=== PATIENT | female | born 1985 | race Caucasian/White ===

== ENCOUNTER → 2017-07-08 | Outpatient (CLI) | payer OTHER | END | disposition home or self-care (01) | LOC: CFH 13:54 | PROVIDERS: ATTEND Nurse Practitioner | DX: O46.8X1 Other antepartum hemorrhage, first trimester (principal); Z3A.00 Weeks of gestation of pregnancy not specified | CPT/HCPCS: 76801 ==

== ENCOUNTER 2018-05-10 11:06 | Outpatient (CLI) | payer MEDICAID ==
[~2018-05-10] VITALS: Ht 157.5 cm; Wt 80.9 kg
[2018-05-10 11:12] VITALS: BP 130/62
== END 2018-05-10 11:40 | disposition home or self-care (01) ==
LOC: LDOP 11:06
PROVIDERS: ATTEND Obstetrics & Gynecology
DX: O13.3 Gestational [pregnancy-induced] hypertension without significant proteinuria, third trimester (principal); O26.893 Other specified pregnancy related conditions, third trimester; R51 Headache; Z3A.35 35 weeks gestation of pregnancy
CPT/HCPCS: 59025; 99211; G0463

== ENCOUNTER 2018-06-17 14:02 | Inpatient (IN) | payer MEDICAID ==
[~2018-06-17] VITALS: Ht 157.5 cm; Wt 75.9 kg
[2018-06-17] MEDS ORDERED: METOCLOPRAMIDE 5 MG/ML, 2ML IVPush PRN (14:30)
[2018-06-17] MEDS ORDERED: OXYTOCIN 30U/ 0.9% NaCL 500ML 500 ML IV ONE (14:30)
[2018-06-17] MEDS ORDERED: FENTANYL PF 100 MCG/2ML IVPush PRN (14:30)
[2018-06-17] MEDS ORDERED: D5%-LACTATED RINGERS 1,000 ML IV SCH (14:30)
[2018-06-17] MEDS: LACTATED RINGERS 1,000 ML IV SCH ×4 (14:30→20:31)
[2018-06-17] MEDS ORDERED: SODIUM CITRATE/CITRIC ACID 30 ML UDC PO PRN (14:30)
[2018-06-17] MEDS ORDERED: CALCIUM CARBONATE 500 MG TAB.CHEW PO PRN (14:30)
[2018-06-17] MEDS ORDERED: FENTANYL PF 100 MCG/2ML IV PRN ×2 (14:30→18:30)
[2018-06-17] MEDS ORDERED: TERBUTALINE 1 MG/ML, 1ML IVPush PRN (14:30)
[2018-06-17 15:13] LABS: BASOPHILS # (AUTO) 0.09 x10^3/uL (0-0.1); BASOPHILS % (AUTO) 1 % (0-1); EOSINOPHILS % (AUTO) 0 % (1-7); LYMPHOCYTES # (AUTO) 1.82 x10^3/uL (1-3.4); LYMPHOCYTES % (AUTO) 16 % (22-44); MD NO; MEAN CORPUSCULAR HEMOGLOBIN 30.7 pg (27.0-34.8); MEAN CORPUSCULAR HGB CONC 33.5 g/dL (32.4-35.8); MEAN CORPUSCULAR VOLUME 91.7 fL (80-100); MEAN PLATELET VOLUME 10.4 fL (7.4-10.4); MONOCYTES # (AUTO) 0.49 x10^3/uL (0.2-0.8); MONOCYTES % (AUTO) 4 % (2-9); NEUTROPHILS # (AUTO) 9.32 x10^3/uL (1.8-6.8); NEUTROPHILS % (AUTO) 80 % (42-75); PLATELET COUNT 164 x10^3/uL (130-400); RED BLOOD COUNT 4.02 x10^6/uL (3.82-5.3); RED CELL DISTRIBUTION WIDTH 13.7 % (9.6-15.2)
[2018-06-17] MEDS ORDERED: NEWBORN KIT ONE (16:00)
[2018-06-17] MEDS ORDERED: OXYTOCIN 30U/ 0.9% NaCL 500ML 500 ML ONE (16:00)
[2018-06-17] MEDS ORDERED: OXYTOCIN 30U/ 0.9% NaCL 500ML 500 ML IV SCH (16:14)
[2018-06-17] MEDS ORDERED: SODIUM CITRATE/CITRIC ACID 30 ML UDC ONE (16:20)
[2018-06-17] MEDS ORDERED: METOCLOPRAMIDE 5 MG/ML, 2ML ONE (16:20)
[2018-06-17] MEDS ORDERED: CEFAZOLIN 1,000 MG ONE (16:27)
[2018-06-17] MEDS ORDERED: FENTANYL PF 100 MCG/2ML ONE (16:27)
[2018-06-17] MEDS ORDERED: EPHEDRINE 50 MG/ML, 1ML ONE (16:27)
[2018-06-17] MEDS ORDERED: OXYTOCIN 10 UNITS/ML, 1ML ONE (16:27)
[2018-06-17] MEDS ORDERED: METOCLOPRAMIDE 5 MG/ML, 2ML IV ONE (16:30)
[2018-06-17] MEDS ORDERED: SODIUM CITRATE/CITRIC ACID 30 ML UDC PO ONE (16:30)
[2018-06-17] MEDS ORDERED: LACTATED RINGERS 1,000 ML IVBOLUS ONE (16:30)
[2018-06-17] MEDS ORDERED: KETOROLAC 30 MG/1 ML ONE (17:34)
[2018-06-17] MEDS ORDERED: ONDANSETRON 2MG/ML, 2ML ONE (17:34)
[2018-06-17] MEDS ORDERED: PROMETHAZINE 25 MG/ML, 1ML IV PRN (18:30)
[2018-06-17] MEDS ORDERED: MEPERIDINE/PF 25MG/0.5ML IVPush PRN (18:30)
[2018-06-17] MEDS ORDERED: LABETALOL 5MG/ML, 20ML IV PRN (18:30)
[2018-06-17] MEDS ORDERED: ONDANSETRON 2MG/ML, 2ML IV PRN ×2 (18:30→21:00)
[2018-06-17] MEDS ORDERED: MORPHINE SULFATE 4 MG/ML, 1ML IVPush PRN (18:30)
[2018-06-17] MEDS ORDERED: OXYcodone 5 MG/5 ML ORAL.SOL UDC PO PRN (18:30)
[2018-06-17] MEDS ORDERED: EPHEDRINE 50 MG/ML, 1ML IVPush PRN (18:30)
[2018-06-17 20:15] VITALS: BP 153/72
[2018-06-17] MEDS: KETOROLAC 30 MG/1 ML IV SCH ×2 (20:15→23:10)
[2018-06-17] MEDS: OXYTOCIN 30U/ 0.9% NaCL 500ML 500 ML IV SCH (20:31)
[2018-06-17] MEDS ORDERED: MISOPROSTOL 200 MCG TABLET PR PRN (21:00)
[2018-06-17] MEDS ORDERED: OXYcodone/APAP 5/325MG TABLET PO PRN (21:00)
[2018-06-17] MEDS ORDERED: BISACODYL 10 MG SUPP PR PRN (21:00)
[2018-06-17 21:32] VITALS: BP_SYST 146; BP_SYST 153; BP_DIAS 72; BP_DIAS 80
[2018-06-17] MEDS: HYDROcodone/APAP 5/325 TABLET PO PRN (22:01)
[2018-06-17 23:15] VITALS: BP 119/69
[2018-06-18 00:56] LABS: BASOPHILS # (AUTO) 0.05 x10^3/uL (0-0.1); BASOPHILS % (AUTO) 0 % (0-1); EOSINOPHILS % (AUTO) 0 % (1-7); LYMPHOCYTES # (AUTO) 2.29 x10^3/uL (1-3.4); LYMPHOCYTES % (AUTO) 16 % (22-44); MD NO; MEAN CORPUSCULAR HEMOGLOBIN 32.1 pg (27.0-34.8); MEAN CORPUSCULAR HGB CONC 34.5 g/dL (32.4-35.8); MEAN CORPUSCULAR VOLUME 92.9 fL (80-100); MONOCYTES # (AUTO) 0.58 x10^3/uL (0.2-0.8); MONOCYTES % (AUTO) 4 % (2-9); NEUTROPHILS # (AUTO) 11.81 x10^3/uL (1.8-6.8); NEUTROPHILS % (AUTO) 80 % (42-75); PLATELET COUNT 140 x10^3/uL (130-400); RED BLOOD COUNT 3.43 x10^6/uL (3.82-5.3); RED CELL DISTRIBUTION WIDTH 13.8 % (9.6-15.2)
[2018-06-18 03:53] VITALS: BP 124/71
[2018-06-18] MEDS: HYDROcodone/APAP 5/325 TABLET PO PRN ×4 (03:54→20:05)
[2018-06-18] MEDS: LACTATED RINGERS 1,000 ML IV SCH ×4 (04:31→16:31)
[2018-06-18] MEDS: KETOROLAC 30 MG/1 ML IV SCH ×4 (05:22→23:31)
[2018-06-18] MEDS: OXYTOCIN 30U/ 0.9% NaCL 500ML 500 ML IV SCH ×2 (06:31→16:31)
[2018-06-18 06:50] VITALS: BP 127/60
[2018-06-18] MEDS: PRENATAL VIT/IRON/FA 1 EACH TABLET PO SCH (07:59)
[2018-06-18] MEDS: DOCUSATE 100 MG CAPSULE PO PRN ×2 (07:59→20:05)
[2018-06-18 13:00] VITALS: BP 149/75
[2018-06-18 16:20] VITALS: BP 152/74
[2018-06-18 20:00] VITALS: BP 135/83
[2018-06-19] MEDS: KETOROLAC 30 MG/1 ML IV SCH ×2 (05:05→11:00)
[2018-06-19] MEDS: HYDROcodone/APAP 5/325 TABLET PO PRN ×2 (05:05→13:19)
[2018-06-19 07:56] VITALS: BP 132/70
[2018-06-19] MEDS: PRENATAL VIT/IRON/FA 1 EACH TABLET PO SCH (09:26)
[2018-06-19] MEDS: DOCUSATE 100 MG CAPSULE PO PRN (09:26)
[2018-06-19] MEDS ORDERED: OXYC-302 PO (10:23)
[2018-06-19] MEDS ORDERED: IBUP-1222 PO (10:24)
[2018-06-19] MEDS ORDERED: DOCU-131 PO (10:25)
== END 2018-06-19 16:24 | disposition home or self-care (01) | DRG 766 ==
LOC: LDOP 14:02 → LDIP 14:30 → 2NW 17:53
PROVIDERS: ADMIT Obstetrics & Gynecology; ATTEND Obstetrics & Gynecology
PROC: 10D00Z1 Extraction of Products of Conception, Low, Open Approach (ICD-10-PCS; principal; 2018-06-17)
DX: O34.211 Maternal care for low transverse scar from previous cesarean delivery (principal); O48.0 Post-term pregnancy; Z37.0 Single live birth; O77.0 Labor and delivery complicated by meconium in amniotic fluid; O76 Abnormality in fetal heart rate and rhythm complicating labor and delivery; Z3A.41 41 weeks gestation of pregnancy; Z80.3 Family history of malignant neoplasm of breast; Z83.3 Family history of diabetes mellitus
CPT/HCPCS: 36415; 82803; 85025; 86850; 86900; J0690; J1885; J2405; J3010; J2590; J2765; J7120